=== PATIENT | male | born 1980 | race African-American/Black ===

== ENCOUNTER 2019-07-01 05:02 | Emergency (ER) | payer SELFPAY ==
[~2019-07-01] VITALS: Ht 177.8 cm; Wt 70.4 kg
--- NOTE | 2019-07-01 05:14 | PHYS DOC ---
General Adult EDM: Chief Complaint: chest pain HPI: HPI: Patient is a 38 year old male who presents with complaint of chest pain that started approximately 45 minutes ago. Patient states that pain woke him up from sleep and he describes pain as sharp and stabbing. He states that when pain was at its worst, it was an 8 out of 10. He does indicate that the pain is worsened when he lies down flat. Patient is not aware of any exacerbating symptoms. Patient states that at this time pain is gone. He denies having had any nausea, vomiting or diaphoresis. Patient is not aware of any personal or family history of cardiac disease or blood clots.[] (ELISEO SCOTT Jr. DO) Review of Systems: Review of Systems: Constitutional: Denies fever or chills. [] Respiratory: Complains of shortness of breath. [] Cardiovascular: Complains of chest pain. [] GI: Denies abdominal pain, nausea, vomiting or diarrhea. [] Neurologic: Denies headache, focal weakness or sensory changes. [] A full 10 point review of systems has been reviewed and is otherwise negative except as noted in history of present illness. (ELISEO SCOTT Jr. DO) Heart Score: HEART Score for Chest Pain: HEART Score for Chest Pain Response (Comments) Value History Slighlty/Non-Suspicious 0 ECG Nonspecific Repolarizatio 1 Age < 45 0 Risk Factors No Risk Factors 0 Total 1 Risk Factors: Risk Factors: DM, Current or recent (<one month) smoker, HTN, HLP, family history of CAD, obesity. Risk Scores: Score 0 - 3: 2.5% MACE over next 6 weeks - Discharge Home Score 4 - 6: 20.3% MACE over next 6 weeks - Admit for Clinical Observation Score 7 - 10: 72.7% MACE over next 6 weeks - Early Invasive Strategies (ELISEO SCOTT Jr. DO) HEART Score for Chest Pain: HEART Score for Chest Pain Response (Comments) Value History Slighlty/Non-Suspicious 0 ECG Normal 0 Age < 45 0 Risk Factors 1 or 2 Risk Factors 1 Troponin < Normal Limit 0 Total 1 Physical Exam: PE: Constitutional: Well developed, well nourished, no acute distress, non-toxic appearance. [] HENT: Normocephalic, atraumatic, bilateral external ears normal, oropharynx moist, no oral exudates, nose normal. [] Eyes: PERRLA, EOMI, conjunctiva normal, no discharge. [] Neck: Normal range of motion, no tenderness, supple. [] Cardiovascular: Regular rate and rhythm[] Lungs & Thorax: Bilateral breath sounds clear to auscultation [] Abdomen: Bowel sounds normal, soft, no tenderness. [] Skin: Warm, dry, no erythema, no rash. [] Extremities: No tenderness, no cyanosis, no clubbing, ROM intact, no edema. [] Neurologic: Alert and oriented X 3, no focal deficits noted. [] (ELISEO SCOTT Jr. DO) EKG: EKG: EKG demonstrates normal sinus rhythm with rate of 66.[] (ELISEO SCOTT Jr. DO) Radiology/Procedures: Radiology/Procedures: [] (ELISEO SCOTT Jr. DO) Radiology/Procedures: PROCEDURE: CT ANGIOGRAPHY CHEST EXAM: CT Pulmonary Angiogram INDICATION: Chest pain, possible PE TECHNIQUE: Multi-detector row images were acquired from the thoracic inlet through the upper abdomen with the use of IV contrast. Sagittal and coronal images were acquired from the transaxial data. MIP images of the pulmonary arteries were obtained. All CT scans performed at this facility utilize dose optimization techniques as appropriate to the exam, including the following: Automated exposure control and adjustment of the mA and/or KV according to patient size (this includes techniques or standardized protocols for targeted exams where dose is indication/reason for exam). IV CONTRAST: 90 mL Omnipaque 350 COMPARISON: Portable chest x-ray of 07/01/2019 at 5:19 AM FINDINGS: PULMONARY ARTERIES: No pulmonary emboli are identified. CARDIOVASCULAR: Unremarkable Aorta is normal caliber. MEDIASTINUM & FRANCES: No adenopathy or masses. LUNGS: Right apical blebs and bullae are present. Calcified granuloma left lower lobe. Otherwise no pulmonary infiltrate, nodule, or other focal abnormality. PLEURAL SPACE: No pleural effusions or pneumothorax. OSSEOUS & SOFT TISSUE: Unremarkable ABDOMEN: Included upper abdomen shows a calcified lymph node along the gastrohepatic ligament and scattered calcifications in the spleen. IMPRESSION: 1. No evidence of pulmonary emboli or other acute cardiopulmonary disease. 2. Evidence of previous granulomatous disease and right apical blebs and bullae, suspicious for smoking-related lung disease. (JOSE LOMAX DO) Course & Med Decision Making: Course & Med Decision Making Pertinent Labs and Imaging studies reviewed. (See chart for details) [] (ELISEO SCOTT Jr., DO) Course & Med Decision Making ED course: Evaluation reveals a 38-year-old male with some pleuritic sounding chest discomfort. He did have an elevated d-dimer so a CT angiogram of his chest was performed which did not show any evidence of PE. I reassured the patient that it did not appear that there were any life-threatening issues at this time. Feel the patient is safe for discharge home. (JOSE LOMAX DO) Dragon Disclaimer: Dragon Disclaimer: This electronic medical record was generated, in whole or in part, using a voice recognition dictation system. (ELISEO SCOTT Jr., DO) Departure Departure Impression: Primary Impression: Non-cardiac chest pain Disposition: HOME, SELF-CARE Condition: STABLE Patient Instructions: Chest Pain (Nonspecific) Additional Instructions: Return to the emergency department with any new or concerning symptoms Scripts Naproxen (NAPROXEN) 500 Mg Tablet 1 TAB PO BID PRN for PAIN, #30 TAB 1 Refill Prov: JOSE LOMAX DO 07/01/19 ELISEO SCOTT Jr., DO July 01, 2019 05:14 JOSE LOMAX DO July 01, 2019 07:28
[2019-07-01 05:36] LABS: BASO # 0.1 x10^3/uL (0.0-0.2); BASO % 1 % (0-3); EOS # 0.1 x10^3/uL (0.0-0.7); EOS % 2 % (0-3); HEMATOCRIT 39.7 % (39.0-53.0); HEMOGLOBIN 13.3 g/dL (13.0-17.5); LYMPH # 1.9 x10^3/uL (1.0-4.8); LYMPH % 37 % (24-48); MEAN CORPUSCULAR HEMOGLOBIN 28 pg (25-35); MEAN CORPUSCULAR HGB CONC 34 g/dL (31-37); MEAN CORPUSCULAR VOLUME 83 fL (79-100); MONO # 0.7 x10^3/uL (0.0-1.1); MONO % 14 % (0-9); NEUT # 2.4 x10^3/uL (1.8-7.7); NEUT % 45 % (31-73); PLATELET COUNT 309 x10^3/uL (140-400); RED BLOOD COUNT 4.79 x10^6/uL (4.30-5.70); RED CELL DISTRIBUTION WIDTH 13.4 % (11.5-14.5); WHITE BLOOD COUNT 5.2 x10^3/uL (4.0-11.0)
[2019-07-01] MEDS: IV NORMAL SALINE 1000ML BAG 1,000 ML IV SCH (05:42)
[2019-07-01] MEDS: ASPIRIN CHEWABLE 81 MG TABLET. PO ONE (05:42)
--- NOTE | 2019-07-01 05:45 | RAD ---
Study: CR PORTABLE CHEST 1V Indication: Chest pain. Comparison: None. Findings: Mildly prominent and somewhat plethoric central vasculature. No layering effusion, pneumothorax or lobar consolidation. Intact osseous structures. Unremarkable visualized upper abdomen. Impression: Mildly prominent and plethoric central vasculature without an associated pleural effusion. The cardiomediastinal silhouette is within normal limits for size. Electronically signed by: JACKY FLETCHER MD (07/01/2019 5:42 AM) [id number]
[2019-07-01 05:56] LABS: GFR 84.5; POTASSIUM 3.9 mmol/L (3.5-5.1)
[2019-07-01 06:01] LABS: ALBUMIN 3.6 g/dL (3.4-5.0); ALBUMIN/GLOBULIN RATIO 1.2 (1.0-1.7); MAGNESIUM 1.8 mg/dL (1.8-2.4); TOTAL BILIRUBIN 0.2 mg/dL (0.2-1.0); TOTAL PROTEIN 6.7 g/dL (6.4-8.2)
[2019-07-01 06:07] LABS: BILIRUBIN,URINE NEGATIVE (NEG); CLARITY,URINE CLOUDY; COLOR,URINE YELLOW; NITRITE,URINE NEGATIVE (NEG); PH,URINE 7.5 (<5.0-8.0); PROTEIN,URINE NEGATIVE (NEG-TRACE)
[2019-07-01 06:15] LABS: AMPHETAMINE/METHAMPHETAMINE NEG (NEG); BARBITURATES NEG (NEG); BENZODIAZEPINES NEG (NEG); CANNABINOIDS POS (NEG); COCAINE NEG (NEG); METHADONE NEG (NEG); OPIATES NEG (NEG); PHENCYCLIDINE NEG (NEG)
[2019-07-01 06:16] LABS: AMORPHOUS SEDIMENT,UR PRESENT /HPF; SQUAMOUS EPITHELIAL CELL,UR OCC /LPF
[2019-07-01 06:20] LABS: RBC,URINE 0 /HPF (0-2)
[2019-07-01 06:21] LABS: BACTERIA,URINE FEW /HPF (0-FEW)
[2019-07-01] MEDS: IOHEXOL 350 MG/ML 100 ML VIAL. IV ONE (06:36)
[2019-07-01] MEDS ORDERED: CONTRAST GIVEN. MC PRN (06:45)
--- NOTE | 2019-07-01 07:21 | RAD ---
EXAM: CT Pulmonary Angiogram INDICATION: Chest pain, possible PE TECHNIQUE: Multi-detector row images were acquired from the thoracic inlet through the upper abdomen with the use of IV contrast. Sagittal and coronal images were acquired from the transaxial data. MIP images of the pulmonary arteries were obtained. All CT scans performed at this facility utilize dose optimization techniques as appropriate to the exam, including the following: Automated exposure control and adjustment of the mA and/or KV according to patient size (this includes techniques or standardized protocols for targeted exams where dose is indication/reason for exam). IV CONTRAST: 90 mL Omnipaque 350 COMPARISON: Portable chest x-ray of 07/01/2019 at 5:19 AM FINDINGS: PULMONARY ARTERIES: No pulmonary emboli are identified. CARDIOVASCULAR: Unremarkable Aorta is normal caliber. MEDIASTINUM & FRANCES: No adenopathy or masses. LUNGS: Right apical blebs and bullae are present. Calcified granuloma left lower lobe. Otherwise no pulmonary infiltrate, nodule, or other focal abnormality. PLEURAL SPACE: No pleural effusions or pneumothorax. OSSEOUS & SOFT TISSUE: Unremarkable ABDOMEN: Included upper abdomen shows a calcified lymph node along the gastrohepatic ligament and scattered calcifications in the spleen. IMPRESSION: 1. No evidence of pulmonary emboli or other acute cardiopulmonary disease. 2. Evidence of previous granulomatous disease and right apical blebs and bullae, suspicious for smoking-related lung disease. Electronically signed by: Marvin Alvarez MD (07/01/2019 7:18 AM) [id number]
[2019-07-01] MEDS ORDERED: NAPR-514 PO (07:27)
[2019-07-01 07:30] VITALS: BP 134/75
== END 2019-07-01 07:38 | disposition home or self-care (01) ==
LOC: ER 05:02
DX: R07.89 Other chest pain (principal); R06.02 Shortness of breath
CPT/HCPCS: 36415; 71045; 71275; 80053; 80307; 81001; 83735; 83880; 84443; 84484; 85025; 85379; 87086; 99285; J7030; Q9967